=== PATIENT | female | born 1975 | race American Indian/Alaskan Native ===

== ENCOUNTER 2019-03-01 10:33 | Emergency (ER) | payer SELFPAY ==
--- NOTE | 2019-03-01 11:09 | Event Note ---
ED Screening Note ED Screening Note: This initial assessment/diagnostic orders/clinical plan/treatment(s) is/are subject to change based on patients health status, clinical progression and re- assessment by fellow clinical providers in the ED. Further treatment and workup at subsequent clinical providers discretion. Patient/guardian urged not to elope from the ED as their condition may be serious if not clinically assessed and managed. Initial orders include: ekg-abnormal serial troponins chest xray VSS No life threat Rehana Rosenberg NP
--- NOTE | 2019-03-01 11:47 | XRay Report ---
AP CHEST: HISTORY: chest pain AP view of the chest demonstrates a normal mediastinal and cardiac contour with clear lungs and normal bony and soft tissue structures. Calcified granuloma in the right upper lobe is noted. IMPRESSION: Unremarkable AP chest.
[2019-03-01 11:55] LABS: Basophils % (Auto) 0.4 % (0.0-1.8); Eosinophils # (Auto) 0.2 K/mm3 (0.0-0.4); Eosinophils % (Auto) 2.6 % (0.0-4.3); Hematocrit 40.8 % (30.3-42.9); Hemoglobin 13.9 gm/dl (10.1-14.3); Lymphocytes # (Auto) 2.7 K/mm3 (1.2-5.4); Lymphocytes % (Auto) 38.2 % (13.4-35.0); Mean Corpuscular HGB Conc 34 % (30-34); Mean Corpuscular Volume 82 fl (79-97); Monocytes # (Auto) 0.4 K/mm3 (0.0-0.8); Monocytes % (Auto) 6.4 % (0.0-7.3); Platelet Count 183 K/mm3 (140-440); Red Blood Count 4.96 M/mm3 (3.65-5.03); Red Cell Distribution Width 14.1 % (13.2-15.2)
--- NOTE | 2019-03-01 11:55 | Emergency Department Report ---
ED Chest Pain HPI - General Chief Complaint: Chest Pain Stated Complaint: CHEST PAIN/SOB Time Seen by Provider: 03/01/19 11:45 Source: patient Mode of arrival: Ambulatory Limitations: No Limitations - History of Present Illness Initial Comments: Patient is a 43-year-old female presents emergency room with complaints of chest pain 3 days. Patient states her chest pain is intermittent. Patient states her chest pain is more pronounced and severe when she is exerting herself. Patient states he is also having shortness of breath. Patient states her shortness breath is worse with exertion and better with rest. Patient states her chest pain is better with rest. Patient states her chest pain is an 8 out of 10. Patient states that her left chest and nonradiating. Patient denies fever chills. Patient denies diaphoresis. Patient denies nausea vomiting. Patient denies abdominal pain. Patient denies burping. Patient states she's noncompliant with her blood pressure medicine regimen. MD Complaint: chest pain -: Sudden Onset: during rest Pain Location: substernal, left chest Severity: severe Severity scale (0 -10): 8 Quality: sharp Consistency: constant Improves With: rest Worsens With: exertion re: dyspnea. denies: nausea, vomting, diaphoresis, sense of impending doom Other Symptoms: palpitations. denies: cough, fever, syncope, rash, acid taste in mouth, leg swelling, burping Treatments Prior to Arrival: none Aspirin use within the Past 7 Days: (1) Yes - Related Data On Oral Contraceptives: No Home Medications Medication Instructions Recorded Confirmed Last Taken Aspirin [Adult Aspirin] 81 mg PO DAILY 03/01/19 03/01/19 03/01/19 Carvedilol [Coreg] 12.5 mg PO BID 03/01/19 03/01/19 03/01/19 Enalapril Maleate [Vasotec] 20 mg PO DAILY 03/01/19 03/01/19 03/01/19 Furosemide [Lasix] 20 mg PO QDAY 03/01/19 03/01/19 03/01/19 Spironolactone [Aldactone] 25 mg PO BID 03/01/19 03/01/19 03/01/19 diphenhydrAMINE [Benadryl CAP] 25 mg PO QHS PRN 03/01/19 03/01/19 Unknown Allergies Allergy/AdvReac Type Severity Reaction Status Date / Time Penicillins Allergy Unknown Verified 03/01/19 10:55 Heart Score - HEART Score History: Moderately suspicious EKG: Significant ST-depression Age: 45-65 Risk factors: 1-2 risk factors Troponin: < normal limit HEART Score: 5 ED Review of Systems ROS: Stated complaint: CHEST PAIN/SOB Other details as noted in HPI Constitutional: denies: chills, fever Eyes: denies: eye pain, eye discharge, vision change ENT: denies: ear pain, throat pain Respiratory: shortness of breath, SOB with exertion, SOB at rest. denies: cough, wheezing Cardiovascular: chest pain, palpitations, dyspnea on exertion Endocrine: no symptoms reported Gastrointestinal: denies: abdominal pain, nausea, diarrhea Genitourinary: denies: urgency, dysuria, discharge Musculoskeletal: denies: back pain, joint swelling, arthralgia Skin: denies: rash, lesions Neurological: denies: headache, weakness, paresthesias Psychiatric: denies: anxiety, depression Hematological/Lymphatic: denies: easy bleeding, easy bruising ED Past Medical Hx - Past Medical History Previous Medical History?: Yes Hx Hypertension: Yes (non-compliant) Hx Diabetes: Yes (non-compliant) Additional medical history: hyperthyroidism, cardiomyopathy - Surgical History Past Surgical History?: Yes Hx Cholecystectomy: Yes Additional Surgical History: , tubal ligation - Family History Family history: no significant - Social History Smoking Status: Current Every Day Smoker Substance Use Type: Alcohol - Medications Home Medications: Home Medications Medication Instructions Recorded Confirmed Last Taken Type Aspirin [Adult Aspirin] 81 mg PO DAILY 03/01/19 03/01/19 03/01/19 History Carvedilol [Coreg] 12.5 mg PO BID 03/01/19 03/01/19 03/01/19 History Enalapril Maleate [Vasotec] 20 mg PO DAILY 03/01/19 03/01/19 03/01/19 History Furosemide [Lasix] 20 mg PO QDAY 03/01/19 03/01/19 03/01/19 History Spironolactone [Aldactone] 25 mg PO BID 03/01/19 03/01/19 03/01/19 History diphenhydrAMINE [Benadryl CAP] 25 mg PO QHS PRN 03/01/19 03/01/19 Unknown History ED Physical Exam - General Limitations: No Limitations General appearance: alert, in no apparent distress - Head Head exam: Present: atraumatic, normocephalic - Eye Eye exam: Present: normal appearance - ENT ENT exam: Present: mucous membranes moist - Neck Neck exam: Present: normal inspection - Respiratory Respiratory exam: Present: normal lung sounds bilaterally. Absent: respiratory distress, chest wall tenderness - Cardiovascular Cardiovascular Exam: Present: regular rate, normal rhythm. Absent: systolic murmur, diastolic murmur, rubs, gallop - GI/Abdominal GI/Abdominal exam: Present: soft, normal bowel sounds - Extremities Exam Extremities exam: Present: normal inspection - Back Exam Back exam: Present: normal inspection - Neurological Exam Neurological exam: Present: alert, oriented X3 - Psychiatric Psychiatric exam: Present: normal affect, normal mood - Skin Skin exam: Present: warm, dry, intact, normal color. Absent: rash ED Course Vital Signs 03/01/19 10:56 Temperature 97.8 F Pulse Rate 70 Respiratory 16 Rate Blood Pressure 183/96 [Right] O2 Sat by Pulse 99 Oximetry - Reevaluation(s) Reevaluation #1: Discussed all results with patient. Patient will be admitted to the hospitalist service. Patient agrees to plan of care. 03/01/19 13:37 - Consultations Consultation #1: Hospitalist consulted for admission. Hospitalist to admit patient. Hospitalist to assume care patient. 03/01/19 13:37 EMERITA score - Emerita Score Age > 65: (0) No Aspirin use within the Past 7 Days: (1) Yes 3 or more CAD Risk Factors: (1) Yes 2 or more Angina events in past 24 hrs: (1) Yes Known CAD with more than 50% Stenosis: (0) No Elevated Cardiac Markers: (0) No ST Deviation Greater than 0.5mm: (0) No EMERITA Score: 3 ED Medical Decision Making - Lab Data Result diagrams: 03/01/19 11:17 03/01/19 11:17 - EKG Data -: EKG Interpreted by Dc EKG shows normal: sinus rhythm, axis, intervals, QRS complexes Rate: normal - EKG Data Interpretation: nonspecific ST-T wave eduardo, other (ST segment depression.) - Radiology Data Radiology results: report reviewed AP CHEST: HISTORY: chest pain AP view of the chest demonstrates a normal mediastinal and cardiac contour with clear lungs and normal bony and soft tissue structures. Calcified granuloma in the right upper lobe is noted. IMPRESSION: Unremarkable AP chest. - Medical Decision Making Patient is a 43-year-old female that presents emergency room with complaints of chest pain and shortness of breath. Patient's chest pain is worse with exertion. Patient was admitted to the hospitalist service. Patient's initial labs unremarkable. Patient's EKG shows a T-wave depression. Chest x-ray is negative. Patient is also compliant with blood pressure medications. - Differential Diagnosis ACS. Noncompliance.. Cp. SOB. ACS Critical Care Time: Yes Critical care attestation.: If time is entered above; I have spent that time in minutes in the direct care of this critically ill patient, excluding procedure time. Critical Care Time: 35 minutes ED Disposition Clinical Impression: SOB (shortness of breath), Essential hypertension, Non-compliance, Hypokalemia Chest pain Qualifiers: Chest pain type: unspecified Qualified Code(s): R07.9 - Chest pain, unspecified Disposition: DC-09 OP ADMIT IP TO THIS HOSP Is pt being admited?: Yes Does the pt Need Aspirin: No Condition: Critical Referrals: JAGDISH TONEY MD [Primary Care Provider] - 3-5 Days Time of Disposition: 12:45
[2019-03-01 12:13] LABS: BUN/Creatinine Ratio 14; Blood Urea Nitrogen 7 mg/dL (7-17); Hemolysis Index 1
[2019-03-01 12:18] LABS: Alanine Aminotransferase 12 units/L (7-56); Albumin 3.3 g/dL (3.9-5)
[2019-03-01 12:19] LABS: Bilirubin,Direct < 0.2 mg/dL (0-0.2)
[2019-03-01] MEDS ORDERED: ASPIRIN PO ONE (12:44)
[2019-03-01] MEDS ORDERED: K-DUR PO ONE (16:54)
--- NOTE | 2019-03-01 16:59 | Event Note ---
Date: 03/01/19 43 YO Female presents to ED for evaluation of Chest pain. Pt seen and evaluated in ED and treated IAW chest pain protocol. Cardiac enzymes, ekg, telemetry were unremarkable. Pt medically optimized and found to have atypical chest pain secondary to GERD. Pt treated with PPI therapy. Pt discharged home and instructed to f/u pcp 3-5 days, as well as F/U with Cardiology 3-5 days for further care and evaluation. Exam: - General Limitations: No Limitations General appearance: alert, in no apparent distress - Head Head exam: Present: atraumatic, normocephalic - Eye Eye exam: Present: normal appearance, PERRL Pupils: Present: normal accommodation - ENT ENT exam: Present: mucous membranes moist - Neck Neck exam: Present: normal inspection - Respiratory Respiratory exam: Present: normal lung sounds bilaterally. Absent: respiratory distress - Cardiovascular Cardiovascular Exam: Present: regular rate, normal rhythm. Absent: systolic murmur, diastolic murmur, rubs, gallop - GI/Abdominal GI/Abdominal exam: Present: soft, normal bowel sounds. Absent: distended, tenderness, guarding, rebound - Rectal Rectal exam: Present: deferred - Extremities Exam Extremities exam: Present: normal inspection - Back Exam Back exam: Present: normal inspection - Neurological Exam Neurological exam: Present: alert, oriented X3 - Psychiatric Psychiatric exam: Present: normal affect, normal mood - Skin Skin exam: Present: warm, dry, intact, normal color. Absent: rash
[2019-03-01 19:02] VITALS: BP 167/83
== END 2019-03-01 19:02 | disposition admitted as inpatient to this hospital (09) ==
LOC: ED 10:33
DX: R07.89 Other chest pain (principal); R06.02 Shortness of breath; I10 Essential (primary) hypertension; E87.6 Hypokalemia; E11.9 Type 2 diabetes mellitus without complications; E05.90 Thyrotoxicosis, unspecified without thyrotoxic crisis or storm; F17.200 Nicotine dependence, unspecified, uncomplicated; Z91.19 Patient's noncompliance with other medical treatment and regimen; Z90.49 Acquired absence of other specified parts of digestive tract; Z98.51 Tubal ligation status; Z88.0 Allergy status to penicillin
CPT/HCPCS: 36415; 71045; 80048; 80076; 84484; 84703; 85025; 85379; 93005; 93010